=== PATIENT | male | born 1970 ===

== ENCOUNTER 2024-08-15 15:19 | Outpatient (REF) | payer MEDICARE, SELFPAY ==
[2024-08-15 21:31] LABS: Abs Immature Grans 0.18 10^3/uL (0.0-0.06); Absolute Basophil Count 0.09 10^3/uL (0.0-0.2); Absolute Eosinophil Count 0.13 10^3/uL (0.0-0.7); Absolute Lymphocyte Count 2.25 10^3/uL (1.2-3.4); Absolute Monocyte Count 0.89 10^3/uL (0.1-0.8); Absolute Neutrophil Count 4.41 10^3/uL (1.2-6.7); Basophils % 1.1 %; Eosinophils % 1.6 %; HCT 50.8 % (40.0-50.0); Immature Grans % 2.3 %; Lymphocytes % 28.3 %; MCHC 33.5 % (32.0-36.0); MCV 90 fL (80-95); MPV 10.8 fL (8.0-11.0); Monocytes % 11.2 %; Neutrophils % 55.5 %; Platelet Count 187 10^3/uL (130-400); RBC 5.66 10^6/uL (4.36-5.78); RDW 17.9 % (11.8-14.1); RDW-SD 55.3 fL; WBC 7.95 10^3/uL (4.4-10.8)
[2024-08-15 21:47] LABS: ALT 44 U/L (16-63); AST 32 U/L (15-37); Albumin 3.6 g/dL (3.4-5.0); Alkaline Phosphatase 117 U/L (46-116); BUN 14 mg/dL (7-18); Bilirubin, Total 0.6 mg/dL (0.2-1.0); CREATININE 1.1 mg/dL (0.70-1.30); Calcium 8.8 mg/dL (8.5-10.1); Chloride 105 mmol/L (98-107); Estimated GFR 79.28 (mL/min/1.73m2); Glucose 77 mg/dL (74-106); Potassium 4.8 mmol/L (3.5-5.1); Sodium 142 mmol/L (136-145); Total Protein 7.5 g/dL (6.4-8.2)
[2024-08-15 21:49] LABS: COMMENT (LAB VIEW ONLY) 65.82 mg/dL; Microalb ug/mg Crea 8.2 ug/mg Cr
== END 2024-08-15 15:20 | disposition home or self-care (01) ==
LOC: NCHCN 15:19
PROVIDERS: Visit Provider Physician Assistant
DX: E11.9 Type 2 diabetes mellitus without complications (principal)
CPT/HCPCS: 80053; 82043; 82570; 85025